=== PATIENT | male | born 1970 | race Two or more races ===

== ENCOUNTER 2024-08-25 09:21 | Emergency (ER) | payer MEDICAID, SELFPAY ==
[2024-08-25 09:40] VITALS: BP 109/71; PULSE 55; RESP 16; TEMP 37.1; O2SAT 98; BMI 29.7
--- NOTE | 2024-08-25 09:45 | XR_ITS ---
Examination: CT pelvis without intravenous contrast. 2-D sagittal and coronal reconstructions. Date and time of exam:August 25, 2024 1120 hours INDICATIONS: Patient fell off a ladder 3 days ago with injury to the pelvis, pelvic pain CTDI: vol (mGy) :7.45 DLP: (mGycm) : 260 Technique: Multiple 3 mm axial sections of the pelvis have been obtained with the 64 slice high resolution scanner. 2-D sagittal and coronal reconstructions. Low dose protocols were performed. One or more of the following dose reduction techniques were used; automated exposure control, adjustment of the mA and/or KV according to patient size, use of iterative reconstruction technique. Findings: Sacral segments intact Iliac bones acetabular regions anterior rami intact No hip fractures or hip dislocations No pelvic hematoma Contracted urinary bladder IMPRESSION: No acute hip or pelvic fracture
--- NOTE | 2024-08-25 09:45 | XR_ITS ---
Examination: CT lumbar spine, without contrast. 2-D sagittal reconstructions. 2-D coronal reconstructions. 3-D reconstructions. Date and time of exam:August 25, 2024 1120 hours INDICATIONS: Patient fell off a ladder 3 days ago with injury to lower back, lower back pain CTDI: vol (mGy):18.2 DLP: (mGycm):548 Technique: Multiple 1.25 mm axial sections of the lumbar spine without intravenous contrast have been obtained. 2-D sagittal and coronal reconstructions have been obtained. 3-D reconstructions have been obtained. Low dose protocols were performed. One or more of the following dose reduction techniques were used; automated exposure control, adjustment of the mA and/or KV according to patient size, use of iterative reconstruction technique. Findings: Prominent osteopenia Satisfactory alignment lumbar vertebral bodies No lumbar vertebral body compression fracture Lumbar pedicles, laminae, transverse and posterior spinous processes intact Moderate disc narrowing posteriorly L5-S1 L5-S1 4 mm central left paracentral disc bulge, significant left neural foraminal stenosis sagittal image 25, severe left L5 ganglionic compression L4-L5 3 mm central lumbar disc bulge L3-L4 no disc protrusion L2-L3 no disc protrusion L1-L2 no disc protrusion IMPRESSION: No acute lumbar fracture L5-S1 4 mm central left paracentral disc bulge, significant left neural foraminal stenosis severe left L5 ganglionic compression L4-L5 3 mm central lumbar disc bulge Consider MRI lumbar spine without contrast follow-up
--- NOTE | 2024-08-25 12:17 | PD.EDFALL ---
ED Fall Injury RME/HPI General Chief Complaint: Fall Stated Complaint: RIGHT LOWER BACK PAIN S/P FALL FROM LADDER Time Seen by Provider: 08/25/24 09:43 Arrival date/time: 08/25/24 09:21 54-year-old male presents emergency department with complaints of fall from a ladder approximately 6 feet high patient reports lower back pain Limitations: no limitations Related Data Previous Rx's ?Medication ?Instructions ?Recorded Diphenoxylate Hcl/Atrop Sulf 2 tab PO BID #14 tabs 09/07/17 (Lomotil Tablet) Hydrocodone/Acetaminophen * (NORCO 2 tab PO Q4H PRN PAIN #14 tabs 09/07/17 5/325 *) Oxycodone Hcl * (ROXICODONE *) 1 - 2 tab PO Q6HR PRN PAIN #30 tabs 09/22/17 ibuprofen 600 mg tablet 600 mg PO Q8HR PRN PAIN #30 tabs 09/22/17 cyclobenzaprine 10 mg tablet 10 mg PO TID PRN muscle spasm 10 08/25/24 days #30 tab-caps hydrocodone 5 mg-acetaminophen 325 1 tab PO BID PRN pain #10 tabs 08/25/24 mg tablet ibuprofen 800 mg tablet 800 mg PO TID PRN pain #30 tabs 08/25/24 Allergies Allergy/AdvReac Type Severity Reaction Status Date / Time NKA* Allergy Uncoded 08/25/24 09:22 Review of Systems Review of Systems Systems Reviewed: All systems reviewed, normal except as documented Constitutional Constitutional: Reports system reviewed and no additional complaints, except as documented, Denies fever(s) and Denies headache(s) Eyes Eyes: Reports system reviewed and no additional complaints, except as documented and Denies blurry vision ENT Ears, Nose, Mouth, and Throat: Reports system reviewed and no additional complaints, except as documented, Denies headache(s), Denies nasal congestion and Denies nasal discharge Cardiovascular Cardiovascular: Reports system reviewed and no additional complaints, except as documented, Denies chest pain and Denies dyspnea Respiratory Respiratory: Reports system reviewed and no additional complaints, except as documented, Denies chest congestion, Denies cough and Denies dyspnea Gastrointestinal Gastrointestinal: Reports system reviewed and no additional complaints, except as documented and Denies abdominal pain Integumentary/Breasts Skin/Breast: Reports system reviewed and no additional complaints, except as documented and Denies rash Neurologic Neurologic: Reports system reviewed and no additional complaints, except as documented, Reports as per HPI and Denies headache(s) Past Medical History Social History SMOKING STATUS: Never smoker ED Exam General Limitations: Present no limitations General appearance: Present alert and in no apparent distress Head Head exam: Present atraumatic Eye Eye exam: Present normal appearance, PERRL and EOMI ENT ENT exam: Present normal exam, normal oropharynx and mucous membranes moist Neck Neck exam: Present normal inspection, full ROM and trachea midline Chest Chest inspection: Present normal inspection and symmetric chest wall rise Respiratory Respiratory exam: Present normal lung sounds bilaterally Cardiovascular Cardiovascular exam: Present regular rate, normal rhythm and normal heart sounds Abdominal Exam Abdominal exam: Present soft and normal bowel sounds Extremities Exam Extremities exam: Present normal inspection and full ROM Back Exam Back exam: Present normal inspection, full ROM, tenderness, muscle spasm and paraspinal tenderness; Absent CVA tenderness (R) or CVA tenderness (L) Neurological Exam Neurological exam: Present alert, oriented X3 and CN II-XII intact Psychiatric Psychiatric exam: Present normal affect and normal mood Skin Skin exam: Present warm, dry, intact and normal color Course Quality Measures none Orders Category Date Time Status CT lumbar spine wo con Stat Exams 08/25/24 09:[address] pelvis wo con Stat Exams 08/25/24 09:45 Completed Ketorolac Inj [Toradol Inj] Med 08/25/24 12:17 Discontinued 30 mg IM X1 ONE Vital Signs Vital signs: Vital Signs Temperature 98.8 F 08/25/24 09:40 Pulse Rate 55 L 08/25/24 09:40 Respiratory Rate 16 08/25/24 09:40 Blood Pressure 109/71 08/25/24 09:40 Pulse Oximetry (%) 98 08/25/24 09:40 Oxygen Delivery Method Room Air 08/25/24 09:40 O2 saturation 98 room air WNL Fall MDM Narrative MDM Narrative:: 54-year-old male presents emergency department with complaints of fall from a ladder approximately 6 feet high patient reports lower back pain On exam patient well-appearing patient does not appear toxic On exam patient does have tenderness of lower back patient reports no saddle anesthesia no loss of bowel or bladder patient walks with steady gait CT scans obtained no acute emergent findings noted patient does have chronic changes Patient given Toradol for pain Patient discharged home in no distress to follow-up with primary care doctor in the next 24 to 48 hours and for any worsening symptoms to return to the ER immediately Patient data External records reviewed:: [facility] previous records Clinical information provided by:: patient Social determinants that could affect healthcare access:: none Patient has the following chronic illnesses:: None How is presenting disease/condition affected by chronic disease/condition?: no chronic disease Evaluation data The following diagnostics were reviewed and interpreted by me:: radiology exam(s) Lab and/or radiology exams considered but not ordered:: Radiology obtained Interpretation Summary: Reviewed by me Medications / Prescriptions Medications or Prescriptions considered but not ordered:: Given Medication administrations:: Medication Administration History Discontinued Medications Ketorolac Tromethamine (Ketorolac Inj 30 Mg/Ml Vial) 30 mg IM X1 ONE Stop: 08/25/24 12:18 Last Admin: 08/25/24 12:24 Dose: 30 mg Documented By: ED Given Consultations Consultation(s) initiated? (list below): No Diagnosis Fall Differential Diagnosis: other (Lumbar fracture, lumbar radiculopathy, back pain) Most likely diagnosis given after review of the tests above:: Back pain Admission Indicated Admission indicated?: not indicated Admission Request Was there a request for admission?: No Disposition Plan Disposition Plan: Discharge Discharge Attestation Discharge Attestation: The patient and all family members were given an opportunity to ask questions and understood the discharge instructions. Discharge instructions specifically effects, indications for sooner follow up or return to the emergency department, and the expected course of current diagnosis. Patient condition: Stable Discharge Plan Plan Patient Disposition: HOME (Self Care) Disposition Comment: Stable Prescriptions/Referrals Prescriptions/Med Rec: New cyclobenzaprine 10 mg tablet 10 mg PO TID PRN (Reason: muscle spasm) 10 Days Qty: 30 0RF ibuprofen 800 mg tablet 800 mg PO TID PRN (Reason: pain) Qty: 30 0RF hydrocodone-acetaminophen 5-325 mg tablet 1 tab PO BID MDD 10 PRN (Reason: pain) Qty: 10 0RF No Action Diphenoxylate Hcl/Atrop Sulf (Lomotil Tablet) 1 TAB tablet 2 tab PO BID Qty: 14 0RF Hydrocodone/Acetaminophen * (NORCO 5/325 *) 1 TAB tablet 2 tab PO Q4H PRN (Reason: PAIN) Qty: 14 0RF ibuprofen 600 MG tablet 600 mg PO Q8HR PRN (Reason: PAIN) Qty: 30 0RF Oxycodone Hcl * (ROXICODONE *) 5 MG tablet 1 - 2 tab PO Q6HR PRN (Reason: PAIN) Qty: 30 0RF Referrals: No Primary/Family,Physician [Primary Care Provider] - 08/26/24 Problem List Clinical Impression: Bulging lumbar disc, Back pain Patient/Caregiver Discharge Instructions Education Materials: Back Safety: Standing Additional Instructions: Please follow up with your primary care doctor in the next 24-48hrs for any worsening symptoms return here immediately Print Language: [place] Stand Alone Forms: Elaine Award Info., Patient Portal Info Letter PA/AIR TRAFFIC COORDINATOR Supervising Physician PA/AIR TRAFFIC COORDINATOR Supervising Physician: Dr Mercedes
[2024-08-25] MEDS: KETOROLAC INJ 30 MG/ML VIAL IM (12:24)
[2024-08-25 12:30] VITALS: BP 112/76; PULSE 56; RESP 18; TEMP 36.7; O2SAT 97
== END 2024-08-25 12:31 | disposition home or self-care (01) ==
PROVIDERS: Emergency Provider Emergency Medicine
DX: M51.360 Other intervertebral disc degeneration, lumbar region with discogenic back pain only (principal); S39.93XA Unspecified injury of pelvis, initial encounter; W11.XXXA Fall on and from ladder, initial encounter
CPT/HCPCS: 72131; 72192; 96372; 99284; J1885

== ENCOUNTER 2025-08-09 09:32 | Emergency (ER) | payer MEDICAID, SELFPAY ==
[2025-08-09 10:01] VITALS: BP 117/69; PULSE 56; RESP 16; TEMP 36.7; O2SAT 98; BMI 30.3
--- NOTE | 2025-08-09 10:02 | PD.EDSKIN ---
ED Skin Abcess FB-RME/HPI General Chief complaint: Skin/Abscess/Foreign Body Stated complaint: RASH SAGRARIO FOREARMS X 3 DAYS; VERY ITCHY Time Seen by Provider: 08/09/25 09:36 Source: patient Arrival date/time: 08/09/25 09:32 54-year-old male with no known medical history presents to the emergency room with a chief complaint of a rash to the bilateral forearms and itchiness x 3 days Mode of arrival: ambulatory Limitations: no limitations Related Data Previous Rx's ?Medication ?Instructions ?Recorded Diphenoxylate Hcl/Atrop Sulf 2 tab PO BID #14 tabs 09/07/17 (Lomotil Tablet) Hydrocodone/Acetaminophen * (NORCO 2 tab PO Q4H PRN PAIN #14 tabs 09/07/17 5/325 *) Oxycodone Hcl * (ROXICODONE *) 1 - 2 tab PO Q6HR PRN PAIN #30 tabs 09/22/17 ibuprofen 600 mg tablet 600 mg PO Q8HR PRN PAIN #30 tabs 09/22/17 hydrocodone 5 mg-acetaminophen 325 1 tab PO BID PRN pain #10 tabs 08/25/24 mg tablet ibuprofen 800 mg tablet 800 mg PO TID PRN pain #30 tabs 08/25/24 diphenhydramine HCl 25 mg capsule 25 mg PO TID PRN allergic reaction 08/09/25 #14 caps Allergies Allergy/AdvReac Type Severity Reaction Status Date / Time No Known Allergies Allergy Verified 08/09/25 09:34 Review of Systems Review of Systems Systems Reviewed: All systems reviewed, normal except as documented Constitutional Constitutional: Reports system reviewed and no additional complaints, except as documented, Denies fatigue, Denies fever(s), Denies headache(s) and Denies weakness Eyes Eyes: Reports system reviewed and no additional complaints, except as documented, Denies blurry vision and Denies change in vision ENT Ears, Nose, Mouth, and Throat: Reports system reviewed and no additional complaints, except as documented, Denies otalgia, Denies headache(s), Denies nasal congestion, Denies throat swelling and Denies vertigo Cardiovascular Cardiovascular: Reports system reviewed and no additional complaints, except as documented, Denies chest pain, Denies dyspnea and Denies dyspnea on exertion Respiratory Respiratory: Reports system reviewed and no additional complaints, except as documented, Denies chest congestion, Denies cough, Denies dyspnea, Denies dyspnea on exertion and Denies wheezing Gastrointestinal Gastrointestinal: Reports system reviewed and no additional complaints, except as documented, Denies abdominal pain, Denies cramping, Denies nausea and Denies vomiting Genitourinary Genitourinary: Reports system reviewed and no additional complaints, except as documented, Denies dysuria and Denies hematuria Musculoskeletal Musculoskeletal: Reports system reviewed and no additional complaints, except as documented and Denies back pain Integumentary/Breasts Skin/Breast: Reports system reviewed and no additional complaints, except as documented, Reports pruritus, Reports rash and Denies wounds Neurologic Neurologic: Reports system reviewed and no additional complaints, except as documented, Denies confusion, Denies headache(s), Denies lack of coordination, Denies vertigo and Denies weakness Psychiatric Psychiatric: Reports system reviewed and no additional complaints, except as documented, Denies anxiety, Denies confusion, Denies depression, Denies paranoia, Denies suicidal ideation and Denies tactile hallucinations Endocrine Endocrine: Reports system reviewed and no additional complaints, except as documented and Denies fatigue Hematologic/Lymphatic Hematologic/Lymphatic: Reports system reviewed and no additional complaints, except as documented and Denies lymphadenopathy Allergic/Immunologic Allergic/Immunologic: Reports system reviewed and no additional complaints, except as documented, Denies throat swelling, Denies urticaria and Denies wheezing Past Medical History Social History SMOKING STATUS: Never smoker ED Exam General Limitations: Present no limitations General appearance: Present alert and in no apparent distress Head Head exam: Present atraumatic Eye Eye exam: Present normal appearance, PERRL and EOMI ENT ENT exam: Present normal exam, normal oropharynx and mucous membranes moist Neck Neck exam: Present normal inspection, full ROM and trachea midline Chest Chest inspection: Present normal inspection and symmetric chest wall rise Respiratory Respiratory exam: Present normal lung sounds bilaterally Cardiovascular Cardiovascular exam: Present regular rate, normal rhythm and normal heart sounds Abdominal Exam Abdominal exam: Present soft and normal bowel sounds Extremities Exam Extremities exam: Present normal inspection and full ROM Expanded Upper Extremity Exam Shoulder exam: Present normal inspection Arm exam: Present normal inspection Elbow exam: Present normal inspection Forearm/Wrist exam: Present other (Itchiness) Hand exam: Present normal inspection Back Exam Back exam: Present normal inspection and full ROM Neurological Exam Neurological exam: Present alert, oriented X3 and CN II-XII intact Psychiatric Psychiatric exam: Present normal affect and normal mood Skin Skin exam: Present warm, dry, intact and normal color Course Quality Measures none Orders Category Date Time Status Dexamethasone Inj [Decadron Inj] Med 08/09/25 10:02 Discontinued 10 mg PO X1 ONE DiphenhydrAMINE [Benadryl] Med 08/09/25 10:02 Discontinued 25 mg PO X1 ONE Famotidine [Pepcid] Med 08/09/25 10:02 Discontinued 20 mg PO X1 ONE Vital Signs Vital signs: Vital Signs Temperature 98.1 F 08/09/25 10:01 Pulse Rate 56 L 08/09/25 10:01 Respiratory Rate 16 08/09/25 10:01 Blood Pressure 117/69 08/09/25 10:01 Pulse Oximetry (%) 98 08/09/25 10:01 Oxygen Delivery Method Room Air 08/09/25 10:01 Skin / Abscess / Foreign Body MDM Narrative MDM Narrative:: 54-year-old male with no known medical history presents to the emergency room with a chief complaint of a rash to the bilateral forearms and itchiness x 3 days Patient is hemodynamically stable and in no apparent distress. Physical examination shows a rash to the bilateral forearms. Patient has clear bilateral lung sounds there is no difficulty breathing or any respiratory distress. There is no tongue swelling lip swelling. Antihistamines were given with improvement to the patient's symptoms Patient was discharged and educated to follow-up with primary care provider in the next 24 to 48 hours and return to the emergency room for any evidence of worsening signs or symptoms Patient data External records reviewed:: [facility] previous records Clinical information provided by:: patient Social determinants that could affect healthcare access:: none Patient has the following chronic illnesses:: No chronic illness How is presenting disease/condition affected by chronic disease/condition?: no chronic disease Evaluation data The following diagnostics were reviewed and interpreted by me:: lab results and radiology exam(s) Lab and/or radiology exams considered but not ordered:: Labs and radiology exams considered and ordered Interpretation Summary: N/A Medications / Prescriptions Medications or Prescriptions considered but not ordered:: Medication given Medication administrations:: Medication Administration History Discontinued Medications Dexamethasone Sodium Phosphate (Dexamethasone Sod Phos Inj 10 Mg/Ml Vial) 10 mg PO X1 ONE Stop: 08/09/25 10:03 Last Admin: 08/09/25 10:08 Dose: 10 mg Documented By: Diphenhydramine HCl (Diphenhydramine Elix 25 Mg/10 Ml Udc) 25 mg PO X1 ONE Stop: 08/09/25 10:03 Last Admin: 08/09/25 10:08 Dose: 25 mg Documented By: Famotidine (Famotidine 20 Mg Tablet) 20 mg PO X1 ONE Stop: 08/09/25 10:03 Last Admin: 08/09/25 10:09 Dose: 20 mg Documented By: Medication given Consultations Consultation(s) initiated? (list below): No Diagnosis Skin/Abscess Differential Diagnosis: allergic reaction to drug, insect bites and contact dermatitis Most likely diagnosis given after review of the tests above:: Contact dermatitis Admission Indicated Admission indicated?: not indicated Admission Request Was there a request for admission?: No Disposition Plan Disposition Plan: Discharge Discharge Attestation Discharge Attestation: The patient and all family members were given an opportunity to ask questions and understood the discharge instructions. Discharge instructions specifically effects, indications for sooner follow up or return to the emergency department, and the expected course of current diagnosis. Patient condition: Stable Discharge Plan Plan Patient Disposition: HOME (Self Care) Discharge Disposition comment: Stable Prescriptions/Referrals Prescriptions/Med Rec: New diphenhydramine HCl 25 mg capsule 25 mg PO TID PRN (Reason: allergic reaction) Qty: 14 0RF No Action Diphenoxylate Hcl/Atrop Sulf (Lomotil Tablet) 1 TAB tablet 2 tab PO BID Qty: 14 0RF Hydrocodone/Acetaminophen * (NORCO 5/325 *) 1 TAB tablet 2 tab PO Q4H PRN (Reason: PAIN) Qty: 14 0RF ibuprofen 600 MG tablet 600 mg PO Q8HR PRN (Reason: PAIN) Qty: 30 0RF Oxycodone Hcl * (ROXICODONE *) 5 MG tablet 1 - 2 tab PO Q6HR PRN (Reason: PAIN) Qty: 30 0RF ibuprofen 800 mg tablet 800 mg PO TID PRN (Reason: pain) Qty: 30 0RF hydrocodone-acetaminophen 5-325 mg tablet 1 tab PO BID MDD 10 PRN (Reason: pain) Qty: 10 0RF Referrals: No Primary/Family,Physician [Primary Care Provider] - In 1 week Problem List Clinical Impression: Contact dermatitis Patient/Caregiver Discharge Instructions Education Materials: Understanding Contact Dermatitis, ED Contact Dermatitis Additional Instructions: Por favor, consulte con sanches m?duaneo de cabecera en las pr?ximas 24 a 48 horas. El medicamento se envi? a sanches farmacia; por favor, rec?jalo y t?peters seg?n las indicaciones. No tome rafael medicamento si va a conducir o manejar maquinaria pesada, ya que puede causar somnolencia. Si observa alg?n empeoramiento de los s?ntomas, acuda inmediatamente a urgencias. Print Language: [place] Stand Alone Forms: Elaine Award Info., Patient Portal Info Letter PA/ENVIRONMENTAL SERVICES TECHNICIAN Supervising Physician PA/ENVIRONMENTAL SERVICES TECHNICIAN Supervising Physician: Dr. Garza
[2025-08-09] MEDS: DEXAMETHASONE SOD PHOS INJ 10 MG/ML VIAL PO (10:08)
[2025-08-09] MEDS: DiphenhydrAMINE ELIX 25 MG/10 ML UDC PO (10:08)
[2025-08-09] MEDS: FAMOTIDINE 20 MG TABLET PO (10:09)
== END 2025-08-09 11:14 | disposition home or self-care (01) ==
PROVIDERS: Emergency Provider Emergency Medicine
DX: L25.9 Unspecified contact dermatitis, unspecified cause (principal)
CPT/HCPCS: 99281; J1100; A9270